=== PATIENT | female | born 2000 | race Caucasian/White ===

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

== ENCOUNTER 2019-01-06 10:33 | Emergency (ER) | payer BC ==
[2019-01-06] MEDS ORDERED: IBUPROFEN 800 MG TAB PO ONE (11:01)
[2019-01-06] MEDS ORDERED: ACETAMINOPHEN 500 MG TAB PO ONE (11:01)
[2019-01-06] MEDS ORDERED: ONDANSETRON DISINTEGRATING 4 MG TAB PO ONE (11:01)
--- NOTE | 2019-01-06 11:18 | EDPHY ---
H & P Time Seen by Provider: 01/06/19 10:53 HPI/ROS: HPI Flu-like symptoms. 18-year-old female by private vehicle with her mother and sister. This patient states that she developed a dry raspy nonproductive cough with nasal congestion and clear rhinorrhea as well as muscle aches and joint aches, fever and fatigue , and nausea and vomiting, onset less than 2 days ago. Her sister has the same illness. The patient has been vaccinated for influenza. ROS: Constitutional: As above. Eyes: No discharge. No changes in vision. ENT: No sore throat. No nasal congestion or rhinorrhea. Respiratory: As above. Cardiac: No chest pain, no palpitations. Gastrointestinal: No abdominal pain, as above, no diarrhea. Genitourinary: No hematuria. No dysuria or increased frequency with urination. Musculoskeletal: As above. Skin: No rashes. Neurological: No headache. No focal weakness or altered sensation. Past medical history: On control. Obesity. Social history: Here with mother and sister. Nonsmoker. Physical Exam: General Appearance: Alert, no distress. Obese habitus. Intermittent raspy dry cough. This patient is responding to questions appropriately and in full sentences. This patient appears well-hydrated and well-nourished. Eyes: Pupils equal and round no pallor or injection. No lid edema, erythema or injection. ENT, Mouth: Mucous membranes are moist. The pharyngeal tissues are unremarkable. No edema or swelling. No asymmetry suggestive of abscess. No erythema or exudates. No appreciable cervical, submandibular, submental lymphadenopathy. No stridor on auscultation of her neck. Respiratory: There are no retractions, lungs are clear to auscultation with good air movement bilaterally. No tachypnea. Intermittent dry raspy cough. Cardiovascular: Regular rate and rhythm. Tachycardia. No murmur. Neurological: Motor sensory function is grossly intact. Cranial nerves are normal. Gait is normal. Skin: Warm and dry, no rashes. Musculoskeletal: Neck is supple and nontender. No pain on flexion of her neck. No CVA tenderness bilaterally. Extremities are symmetrical. All joints range without pain or impingement. Psychiatric: No agitation. No depression. Database: EKG: Imaging: Chest x-ray PA and lateral; the cardiac mediastinal silhouette is unremarkable. No evidence of infiltrate or pneumothorax. No acute cardiopulmonary disease process noted. Interpreted by me. Procedures: Emergency department course: Triage vital signs reviewed. She is febrile and tachycardic. Vital signs are otherwise unremarkable. Patient's presentation is consistent with influenza. Chest x-ray to be obtained to evaluate for possible pneumonia. Patient will be given 4 mg of ODT Zofran followed by ibuprofen and Tylenol for treatment of fever and myalgias and arthralgias. Mother consents to workup. 11:45 a.m., patient re-evaluated, feeling better after above medications. Diagnosis of influenza discussed with the patient and her mother. Her sister was influenza positive. The patient does feel comfortable going home with her mother. She does fall within the treatment window for Tamiflu. I discussed prescribing this medication with the patient and her mother. She would like this medication prescribed. She will be prescribed Tamiflu as well as Zofran for nausea. I discussed supportive care and [id number] cough and cold medications. Ibuprofen dosing was discussed. Follow-up and return to emergency department precautions thoroughly reviewed. All of their questions were answered. The patient was discharged in good condition with her mother. Differential Diagnosis: The differential diagnosis on this patient includes but is not limited to influenza, viral syndrome. Pneumonia, serious bacterial infection unlikely. This represents a partial list of diagnoses considered. These considerations are based on history, physical exam, past history, reassessment and diagnostic testing. Smoking Status: Never smoked Constitutional: Initial Vital Signs Temperature (C) 38.2 C 01/06/19 10:51 Heart Rate 109 H 01/06/19 10:51 Respiratory Rate 18 01/06/19 10:51 Blood Pressure 137/80 H 01/06/19 10:51 O2 Sat (%) 95 01/06/19 10:51 O2 Delivery Mode Room Air Allergies/Adverse Reactions: No Known Allergies Allergy (Verified 01/06/19 10:53) Home Medications: Medication Instructions Recorded Ondansetron Odt [Zofran Odt 4 mg 4 mg PO Q4PRN PRN #10 tab 01/06/19 (*)] Oseltamivir Phosphate [Tamiflu 75 75 mg PO BID #10 cap 01/06/19 mg (RX)] Medical Decision Making - Diagnostics Imaging Results: Imaging Impressions Chest X-Ray 01/06/19 11:00 Impression: Mild peribronchial thickening which can be seen with airways disease /bronchitis. - Data Points Medications Given: Discontinued Medications Acetaminophen (Tylenol) 1,000 mg PO EDNOW ONE Stop: 01/06/19 11:02 Last Admin: 01/06/19 11:28 Dose: 1,000 mg Ibuprofen (Motrin) 800 mg PO EDNOW ONE Stop: 01/06/19 11:02 Last Admin: 01/06/19 11:29 Dose: 800 mg Ondansetron HCl (Zofran Odt) 4 mg PO EDNOW ONE Stop: 01/06/19 11:02 Last Admin: 01/06/19 11:15 Dose: 4 mg Departure - Departure Disposition: Home, Routine, Self-Care Clinical Impression: Influenza Condition: Good Instructions: Influenza (ED) Additional Instructions: Read and follow provided instructions. Follow-up with your primary care physician in 1-2 days for re-evaluation. Take medication as prescribed for nausea and influenza. Ibuprofen dosin mg every 6 hours with meals for the next 3 days only. Take only as needed for pain. Stay well hydrated. Drink lots of fluids. Consider [id number] cough and cold medications as directed. Return to the emergency department for worsening symptoms or other serious concerns. Referrals: Ana George DO [Primary Care Provider] - As per Instructions Stand Alone Forms: Work Excuse Prescriptions: Ondansetron Odt [Zofran Odt 4 mg (*)] 4 mg PO Q4PRN PRN #10 tab PRN Reason: For Nausea & Vomiting Oseltamivir Phosphate [Tamiflu 75 mg (RX)] 75 mg PO BID #10 cap
[2019-01-06 12:17] VITALS: BP 114/77
== END 2019-01-06 12:01 | disposition home or self-care (01) ==
LOC: CED 10:33
DX: J11.1 Influenza due to unidentified influenza virus with other respiratory manifestations (principal)
CPT/HCPCS: 71046-PO; 99284-ER